=== PATIENT | female | born 1955 | race Caucasian/White ===

== ENCOUNTER 2017-07-13 19:13 | Emergency (ER) | payer BC ==
[~2017-07-13] VITALS: Ht 175.3 cm; Wt 81.3 kg
[~2017-07-13 19:13] MED LIST: ANTIVERT25 MG PO; AVENTYL,PAMELOR25 MG PO; BYSTOLIC5 MG PO; COMPLETE M9 MG/15 ML PO; NORVASC5 MG PO; PRAVACHOL20 MG PO; PRINZIDE 20-121 EACH PO; VITAMIN D400 UNI1 PO; XANAX XR1 MG PO
[2017-07-13 19:59] LABS: HEMATOCRIT 41.9 % (36.0-46.0); MCH 30.9 PG (29.0-34.0); MCHC 35.1 G/DL (30.0-36.0); MCV 88.2 FL (83-99); MEAN PLAT.VOLUME 10.9 uM^3 (9.5-12.4); PLATELET COUNT 230 K/uL (156-360); RBC DIS.WIDTH-CV 11.9 % (11.8-14.6); RBC DIS.WIDTH-SD 38.5 % (39-53); RED BLOOD COUNT 4.75 M/uL (3.80-5.20); WHITE BLOOD COUNT 8.8 K/uL (4.1-10.2)
[2017-07-13 20:12] LABS: CHLORIDE 105 mEq/L (99-109); POTASSIUM 3.4 mEq/L (3.7-5.4); SODIUM 141 mEq/L (136-147)
[2017-07-13 20:14] LABS: GLUCOSE 100 mg/dL (70-99)
[2017-07-13 20:16] LABS: ANION GAP 12 MEQ/L (2-14)
[2017-07-13 20:18] LABS: GFR ESTIMATE (CALCULATED) 49 mL/min/
[2017-07-13 20:19] LABS: TROP-I INTERPRETATION NEGATIVE; TROPONIN-I < 0.01 ng/mL (0.0-0.30); UREA NITROGEN (BUN) 15 mg/dL (9-23)
[2017-07-13 22:33] LABS: TROP-I INTERPRETATION NEGATIVE; TROPONIN-I < 0.01 ng/mL (0.0-0.30)
[2017-07-13] MEDS ORDERED: VALIUM2 MG PO (22:54)
[2017-07-13] MEDS ORDERED: TYLENOL WITH C1 EACH PO (22:54)
[2017-07-13] MEDS ORDERED: LIDOCAINE700 MG TP (22:54)
[2017-07-13] MEDS ORDERED: FLEXERIL10 MG PO (22:54)
[2017-07-13 23:17] VITALS: BP 114/79
== END 2017-07-13 23:17 | disposition home or self-care (01) ==
LOC: EME 19:13
PROVIDERS: Emergency Medicine
DX: M25.519 Pain in unspecified shoulder (principal); M62.830 Muscle spasm of back; I10 Essential (primary) hypertension
CPT/HCPCS: 71020; 80048; 84484; 85027; 93005; 99281; 99285